=== PATIENT | male | born 1935 | race African-American/Black ===

== ENCOUNTER → 2019-10-09 | Outpatient (CLI) | payer MEDICARE ==
[~2019-10-09] MED LIST: AMLO5TAB10 PO; ASPI-630 PO; CLOP75TA PO; ESOM20CA PO; ISOS60TA2 PO; LACT10PA3 PO; NITR0.4T24 SL; SIMV20TA18 PO; SOLI5TAB2 PO; TAMS0.4C97 PO
--- NOTE | 2019-10-09 13:06 | RAD ---
MR#: [id number] Date of Study: 10/09/2019 Ordering Physician: KIERRA PLEITEZ, Referring Physician: ERWIN HENDERSON Tech: RT Mehdi Gonzalez) (N) APPROVED REPORT Test Type: Exercise Stress Nurse/Tech: RT Lisa (Rut) (N) Test Indications: chest pain 2 months ago Cardiac History: none Medications: see EHR Medical History: hypertension Resting ECG: sinus rhythm Resting Heart Rate: 50 bpm Resting Blood Pressure: 150/72mmHg Nurse/Tech Notes Consent: The procedure was explained to the patient in lay terms. Informed consent was witnessed. Aneesh eout was entered into [employer]. History and Stress Test performed by RT Mehdi Gonzalez) (N) POST EXERCISE Reason for Termination: Fatigue Target HR: Yes Max HR: 129 bpm 93% of Maximum Predicted HR: 138 bpm Exercise duration: 4:45 min:sec, 2 Stage Exercise capacity: 7METs Max Blood Pressure: 175/80mmHg INTERPRETATION Stress EKG Conclusion: No acute changes were noted. Imaging Protocol IMAGE PROTOCOL: Rest Tc-99m/stress Tc-99m 1 day Rest: Stress: Viability: Radiopharm.Tc99m QafkrknyyTw00g Sestamibi Thxf58mDr 32.2mCi Duration 15min. 10min. Img Date 10/09/2019 10/09/2019 Inj-Img [id number]. 60min. Post-Injection Exercise: 1 minute Rest Admin Site:IV - Left AntecubitalAdministrator:RT Lisa (Rut)(N) Stress Admin Site: IV - Left AntecubitalAdministrator: RT Mehdi Gonzalez)(N) STRESS DATA End Diast. Vol.104.0mlAv. Heart Rate68.0bpm End Syst. Vol.26.0mlCO Index BSA0.0L/min Myocardial Ybas043.0gEject. Rlqpmauw29.0% Stress Rates Pk. Fill Rate2.38EDV/secLVtime Pk. Fill 269.44msec Pk. Empty Rate3.38ESV/secLVtime Pk. Fnhlk627.64msec 1/3 Pk. Fill1.41EDV/sec Stress Scores Regional WT0.00Summed WT0.00 Regional WM0.00Summed WM0.00 The rest and stress images show normal perfusion, normal contraction and thickening. LV Perf. Quant 17 Seg. SSS0.00 17 Seg. SRS0.00 17 Seg. SDS0.00 Stress Defect Extent (% LAD)0.00Rest Defect Extent (% LAD)0.00Rev. Defect Extent (% LAD)0.00 Stress Defect Extent (% LCX) 0.00Rest Defect Extent (% LCX)0.00Rev. Defect Extent (% LCX)0.00 Stress Defect Extent (% RCA)0.00Rest Defect Extent (% RCA)0.00Rev. Defect Extent (% RCA)0.00 Stress Defect Extent (% ALEX)0.00Rest Defect Extent (% ALEX)0.00Rev. Defect Extent (% ALEX)0.00 Other Information Quality:Average Risk Assessment: Low Risk Conclusion 1. No evidence of EKG changes with stress testing. Average exercise capacity with 7.0 mets reached 2. Normal perfusion at stress/rest. 3. Low risk study. 4. EF > 60%. Signed by : Ross Padilla, Electronically Approved : 10/09/2019 13:05:26
== END | disposition home or self-care (01) ==
LOC: NM 07:01
PROVIDERS: ATTEND Internal Medicine Cardiovascular Disease
DX: R93.89 Abnormal findings on diagnostic imaging of other specified body structures (principal); J43.9 Emphysema, unspecified; I10 Essential (primary) hypertension
CPT/HCPCS: 78452; 93017; A9500

== ENCOUNTER → 2020-07-01 | Outpatient (CLI) | payer MEDICARE ==
[~2020-07-01] MED LIST changes: +AMLO-186 PO; -AMLO5TAB10 PO; +HYDR-2761 PO; -ISOS60TA2 PO; +ISOS60TA55 PO
== END ==
LOC: LAB 09:56
PROVIDERS: ATTEND Surgery
DX: Z01.812 Encounter for preprocedural laboratory examination (principal); K40.90 Unilateral inguinal hernia, without obstruction or gangrene, not specified as recurrent; Z20.822 Contact with and (suspected) exposure to COVID-19
CPT/HCPCS: U0003

== ENCOUNTER 2020-07-06 09:00 | Observation (INO) | payer MEDICARE ==
[2020-07-06] VITALS (9 sets, daily range): BP systolic 108–156; BP diastolic 56–75
[~2020-07-06] VITALS: Ht 166.4 cm; Wt 77.5 kg
[~2020-07-06 09:00] MED LIST changes: +BACITRACIN 50,000 UNIT in IV NORMAL SALINE 500ML BAG 500 ML IRR ONE; -HYDR-2761 PO; +HYDROmorphone 2 MG/ML VIAL IVP PRN; +IV RINGERS,LACTATED 1000ML 1,000 ML IV SCH; +PROCHLORPERAZINE 10 MG/2 ML VIAL. IVP PRN; +fentaNYL PF VIAL 100 MCG/2 ML VIAL IVP PRN
[2020-07-06] MEDS ORDERED: BUPIVACAINE-EPI 0.5% 30 ML VIAL KIT. ONE (09:53)
[2020-07-06] MEDS ORDERED: LIDOCAINE 2% PF 5 ML VIAL. ONE (10:53)
[2020-07-06] MEDS ORDERED: fentaNYL PF VIAL 100 MCG/2 ML VIAL ONE ×2 (10:53→12:05)
[2020-07-06] MEDS ORDERED: PROPOFOL 10 MG/ML (20ML) VIAL. IV ONE (10:53)
[2020-07-06] MEDS ORDERED: ONDANSETRON PF 4 MG/2 ML VIAL. ONE (10:55)
[2020-07-06] MEDS ORDERED: SEVOFLURANE 31 TO 60 MINUTES. IH ONE (10:55)
[2020-07-06] MEDS ORDERED: DEXAMETHASONE SOD PHOS 4 MG/ML VIAL ONE (10:55)
[2020-07-06] MEDS: fentaNYL PF VIAL 100 MCG/2 ML VIAL IVP PRN ×2 (12:09→12:27)
[2020-07-06] MEDS ORDERED: HYDROcodone/APAP 5/325MG 1 TAB TABLET PO PRN ×2 (12:30)
[2020-07-06] MEDS ORDERED: NITROGLYCERIN SUBLINGUAL 0.4 MG BOTTLE OF 25. SL PRN (12:30)
[2020-07-06] MEDS ORDERED: IV NORMAL SALINE 1000ML BAG 1,000 ML IV SCH (12:30)
[2020-07-06] MEDS ORDERED: NALOXONE 0.4 MG/ML VIAL. IV PRN (12:30)
[2020-07-06] MEDS ORDERED: 0.9 % SODIUM CHLORIDE 10 ML DISP.SYRIN. IV PRN (12:30)
--- NOTE | 2020-07-06 12:32 | PDOC4 ---
Operative Note Operative Note Operative Note: Preoperative Diagnosis: Left inguinal hernia Postoperative Diagnosis: Same Procedure: Left inguinal hernia repair with mesh Surgeon: Carlos Diesel Locomotive Firer/Fireman: DARRYL Bazan Anesthesia: General EBL: 10 mL Specimen: Left inguinal cord nodule to pathology Drains: None Complications: None Indication: The patient is a 84-year-old male who was referred with a left inguinal hernia. He was offered surgical repair. The risks of surgery were discussed which include bleeding, infection, recurrence, pain, anesthetic risk, potential need for additional surgery procedure. He understands and would like to proceed. Description: The patient was taken to the operating room and placed supine on the operating table. General anesthesia was performed. The left groin was shaved prepped with ChloraPrep and draped in a standard surgical manner. An incision was made in the skin lines with a scalpel. Cautery dissection was carried down to the external oblique aponeurosis. The aponeurosis was opened down to the external ring. The contents of the inguinal canal were digitally mobilized and encircled with a [place] drain. There was a nodule in the cord structures consistent with an area of fatty necrosis of some fat. This was excised and sent to pathology. There was a moderate sized indirect hernia sac present. This was mobilized from the surrounding cord structures and completely reduced. The defect was filled with a large Phasix mesh plug. The plug was sutured into position with 2-0 Vicryl. The entire inguinal floor was reinforced with a keyhole Prolene mesh patch. This was also sutured with 2-0 Vicryl. The external oblique was closed over the mesh with 2-0 Vicryl. The subcutaneous tissue was approximated with 3-0 Vicryl. The skin was closed with 4-0 Monocryl. The incision was infiltrated with half percent Marcaine with epinephrine. Steri-Strips and a sterile dressing were applied. The patient tolerated the procedure well and was sent to the recovery room in stable condition. At the end of the case all counts were correct. BRITNEY VALENZUELA MD Jul 06, 2020 12:32
[2020-07-06] MEDS ORDERED: MORPHINE SULFATE 2 MG/ML VIAL. ONE (12:42)
[2020-07-06] MEDS: MORPHINE SULFATE 2 MG/ML VIAL. IVP PRN ×2 (12:46→13:05)
[2020-07-06] MEDS: IV 1/2 NORMAL SALINE 1,000 ML IV SCH (13:25)
[2020-07-06] MEDS: TAMSULOSIN 0.4 MG CAP.ER.24H. PO SCH (13:37)
[2020-07-06] MEDS: ISOSORBIDE MONONITRATE ER 30 MG TAB.ER.24H PO SCH (13:37)
[2020-07-06] MEDS: ASPIRIN CHEWABLE 81 MG TABLET. PO SCH (13:37)
[2020-07-06] MEDS: PANTOPRAZOLE 40 MG TABLET.DR. PO SCH (16:42)
[2020-07-06] MEDS ORDERED: SIMVASTATIN 20 MG TABLET PO SCH (21:00)
[2020-07-07] MEDS: IV 1/2 NORMAL SALINE 1,000 ML IV SCH (01:00)
[2020-07-07 02:46] VITALS: BP 116/60
[2020-07-07] MEDS: PANTOPRAZOLE 40 MG TABLET.DR. PO SCH (05:24)
[2020-07-07 07:00] VITALS: BP 125/63
[2020-07-07 08:07] VITALS: BP 125/63
[2020-07-07] MEDS: ISOSORBIDE MONONITRATE ER 30 MG TAB.ER.24H PO SCH (08:07)
[2020-07-07] MEDS: ASPIRIN CHEWABLE 81 MG TABLET. PO SCH (08:07)
[2020-07-07] MEDS: TAMSULOSIN 0.4 MG CAP.ER.24H. PO SCH (08:07)
--- NOTE | 2020-07-07 08:43 | PDOC ---
SURGICAL PROGRESS NOTE DATE: 07/07/20 TIME: 08:41 Subjective tolerating diet urinating ambulating Vital Signs Vital Signs Date Time Temp Pulse Resp B/P (MAP) Pulse Ox O2 Delivery O2 Flow Rate FiO2 07/07/20 08:07 57 125/63 07/07/20 07:00 98.1 18 90 Room Air 98.1 07/06/20 15:30 2.0 I&O Intake and Output 07/07/20 07:00 Intake Total 1300 ml Output Total 10 ml Balance 1290 ml Intake Oral 350 ml IV Total 950 ml Output Estimated Blood Loss 10 ml # Voids 5 General: Alert, Oriented X3, Cooperative Extremities: Other (groin minimal swelling, dressing dry) Assessment/Plan s/p [facility] fu 2 weeks Justicifation of Admission Dx: Justifications for Admission: Justification of Admission Dx: Yes Comments: ESTEBAN WASSERMAN APRN Jul 07, 2020 08:43
[2020-07-07] MEDS ORDERED: HYDR-2761 PO (08:44)
--- NOTE | 2020-07-07 08:46 | DISCH ---
DISCHARGE INSTRUCTIONS Condition on Discharge Condition on Discharge: Stable Activity After Discharge Activity Instructions for Disc: Progressive ambulation Other activity instructions: no lifting > 20 lbs Lifting Instructions after Dis: No heavy lifting, No pulling or pushing Driving Instructions after Dis: Do not drive (while taking pain medication) Diet after Discharge Diet after Discharge: Regular Wound Incision Care Wound/Incision Care: May get incision wet, No wound care needed Contacting the DRHeather after DC Call your doctor for: Concerns you may have Follow-Up Follow up with: Dr Gonzalez 2 weeks, call to schedule [phone] ESTEBAN OLMSTEAD APRN Jul 07, 2020 08:46
[2020-07-07] MEDS ORDERED: CLOPIDOGREL BISULFATE 75 MG TABLET PO SCH (09:00)
--- NOTE | 2020-07-07 09:18 | NUR ---
SW following. Discussed with RN, pt from home, room air, cardiac diet. Pt had surgery on 07/06/20. Discharge order for home with self care. RN advised no SW needs.
--- NOTE | 2020-07-07 09:26 | NUR ---
Discharge instructions and belongings reviewed with patient, verbalized understanding. Patient will be escorted out via ambulation by Jaimie PEREZ.
--- NOTE | 2020-07-12 09:13 | PATHOLOGY ---
[facility] Accession Number: [id number] . 01 Material submitted: . inguinal area - LEFT INGUINAL CORD NODULE. Modifiers: left . 01 Clinical history: . LEFT INGUINAL HERNIA . 02 Diagnosis: Fibroadipose tissue, left inguinal hernia repair: - Lipoma of cord, showing focal fat necrosis, hemorrhage, and acute inflammation. . (JPM:mm; 07/11/2020) [facility] 07/11/2020 1721 Local . 02 Comment: There is no evidence of malignancy. . (JPM:mml; 07/11/2020) . 02 Electronically signed: . Ramsey Story MD, Pathologist NPI- [id number] . 01 Gross description: . The specimen is received in formalin, labeled "Paul Mcneal, left inguinal cord nodule". Received is a segment of indurated bright yellow lobulated tissue measuring 3.7 x 2.3 x 1.0 cm in greatest dimensions. Sectioning reveals light brown cut surfaces. The specimen is submitted representatively in cassette A1. ([facility]; 07/08/2020) QAC/QAC 07/08/2020 1101 Local . 02 Pathologist provided ICD-10: D17.6 . 02 CPT . 981569 Specimen Comment: A courtesy copy of this report has been sent to [phone], [phone] Specimen Comment: [id number] Specimen Comment: Report sent to / DR ABDULLAHI Performed at: 01 [facility] [address], [place] [id number] MD Emmanuel Lilly MD Phone: [phone] Performed at: 02 [facility] [address] [place], [place] [id number] MD Ramsey Story MD Phone: [phone]
--- NOTE | 2020-07-12 12:30 | PDOC3 ---
Discharge Summary Visit Information Date of Admission: Jul 06, 2020 Date of Discharge: Jul 07, 2020 Admitting Diagnosis: Left inguinal hernia Final Diagnosis Left inguinal hernia Brief Hospital Course Allergies Allergies Coded Allergies Type Severity Reaction Last Updated Verified No Known Drug Allergies 07/06/20 No Brief Hospital Course Mr. Mcneal is a 84 old male underwent Left inguinal hernia repair with mesh. Postoperatively tolerating diet, ambulating and pain controlled. Ready for discharge home. Discharge Information Condition at Discharge: Stable Follow Up: Weeks (2) Disposition/Orders: D/C to Home Scheduled Amlodipine Besylate (Amlodipine Besylate) 5 Mg Tablet, 5 MG PO DAILY, (Reported) Entered as Reported by: IMER RINCON on 10/09/19837 Last Taken: Unknown Dose on 07/05/20 Last Action: Continued on 07/06/201227 by BRITNEY VALENZUELA Clopidogrel Bisulfate (Clopidogrel) 75 Mg Tablet, 75 MG PO DAILY for TO PREVENT BLOOD CLOTS, #30 Ref 0 (Reported) Entered as Reported by: IMER RINCON on 10/09/19837 Last Taken: Unknown Dose on 06/28/20 Last Action: Continued on 07/06/201227 by BRITNEY VALENZUELA Esomeprazole Magnesium (Nexium Capsule) 20 Mg Capsule.dr, 20 MG PO DAILYAC, #30 Ref 0 (Reported) Entered as Reported by: IMER RINCON on 10/09/19837 Last Taken: Unknown Dose on 07/05/20 Last Action: Converted on 07/06/201227 by BRITNEY VALENZUELA Isosorbide Mononitrate (Isosorbide Mononitrate Er) 60 Mg Tab.er.24h, 60 MG PO DAILY, (Reported) Entered as Reported by: IMER RINCON on 10/09/19837 Last Taken: Unknown Dose on 07/05/20 Last Action: Converted on 07/06/201227 by BRITNEY VALENZUELA Simvastatin (Simvastatin) 20 Mg Tablet, 20 MG PO HS for FOR CHOLESTEROL, #30 Ref 0 (Reported) Entered as Reported by: IMER RINCON on 10/09/19837 Last Taken: Unknown Dose on 07/05/20 Last Action: Continued on 07/06/201227 by BRITNEY VALENZUELA Tamsulosin Hcl (Flomax) 0.4 Mg Cap.er.24h, 0.4 MG PO DAILY, (Reported) Entered as Reported by: IMER RINCON on 10/09/19837 Last Taken: Unknown Dose on 07/05/20 Last Action: Continued on 07/06/201227 by BRITNEY VALENZUELA Scheduled PRN Hydrocodone Bit/Acetaminophen (Hydrocodone-Apap 5-325 ) 1 Tab Tablet, 1 TAB PO PRN Q4HRS PRN for MILD PAIN 1-3, #30 Ref 0 Prescribed by: Alisa Gu on 07/07/20843 Nitroglycerin (Nitrostat) 0.4 Mg Tab.subl, 0.4 MG SL PRN Q5MIN PRN for CHEST PA IN, (Reported) Entered as Reported by: IMER RINCON on 10/09/19837 Last Action: Continued on 07/06/201227 by BRITNEY VALENZUELA Miscellaneous Medications Aspirin (Aspirin) 81 Mg Tab.chew, 81 MG PO, (Reported) Entered as Reported by: IMER RINCON on 10/09/19837 Last Taken: Unknown Dose on 07/04/20 Last Action: Continued on 07/06/201227 by BRITNEY VALENZUELA Lactulose (Lactulose) 10 Gm Packet, 10 GM PO, (Reported) Entered as Reported by: IMER RINCON on 10/09/19837 Last Taken: Unknown Dose on 07/05/20 Last Action: HELD on 07/06/201227 by BRITNEY VALENZUELA Solifenacin Succinate (Vesicare) 5 Mg Tablet, 5 MG PO, (Reported) Entered as Reported by: IMER RINCON on 10/09/19837 Last Taken: Unknown Dose on 07/05/20 Last Action: HELD on 07/06/201227 by BRITNEY VALENZUELA Justicifation of Admission Dx: Justifications for Admission: Justification of Admission Dx: Yes ALISA GU APRN Jul 12, 2020 12:30
== END 2020-07-07 09:45 | disposition home or self-care (01) ==
LOC: SURG 09:00 → 4 NORTH 12:25
PROVIDERS: ADMIT Surgery; ATTEND Surgery
DX: K40.90 Unilateral inguinal hernia, without obstruction or gangrene, not specified as recurrent (principal)
CPT/HCPCS: 49505; 96360; 96361; C1781; G0378; G0379; J0690; J1100; J2270; J2405; J2704; J3010; J3490; J7040; 88304